=== PATIENT | male | born 1995 | race Caucasian/White ===

== ENCOUNTER 2018-10-29 14:51 | Observation (INO) ==
[2018-10-29] MEDS ORDERED: ceFAZolin Inj 2gm (Premix) 2 GM/50 ML BAG IV ONE (14:55)
[2018-10-29] MEDS ORDERED: DIPH,PERTUSS,TET(ADACEL) VAC/PF 0.5 ML (Tdap) IM ONE (14:55)
[2018-10-29] MEDS ORDERED: Sodium Chloride 0.9% 1,000 ML PRIMARY IV ONE (14:55)
[2018-10-29] MEDS ORDERED: Lidocaine 1% 10 MG/ML - 20 ML VIAL SUBCUT ONE (14:56)
--- NOTE | 2018-10-29 15:01 | PDOC ---
Hand / Wrist Injury HPI - General Chief Complaint: Laceration / Wound Stated Complaint: LEFT INDEX FINGER LACERATION Date Seen by Provider: 10/29/18 Time Seen by Provider: 14:55 Source: POSITIVE: Patient Exam Limitations: POSITIVE: No limitations Nurse's Notes Reviewed & Considered: Yes - History of Present Illness Initial Comments: The patient is a 23-year-old male who presents to the emergency department with an injury to his left index finger. He states that he was cleaning a machine at work. He thought the machine was off however there was still some moving parts within the machine and he got his left index finger caught in one of the gears. He has injury to the index finger only. He is unsure when he last had a tetanus shot. He denies any other significant medical history. Have you received a tetanus shot in the past 10 years?: Unknown - Patient Home Medications Home Medications: Home Medications NK 10/29/18 - Patient Allergies Allergies/Adverse Reactions: Allergies Allergy/AdvReac Type Severity Reaction Status Date / Time No Known Allergies Allergy Verified 10/29/18 15:14 Past Medical History Past Medical History Reviewed: Reviewed - No Changes (No significant past medical history, does not report any medication allergies.) ROS - Limitations ROS Limitations: No Limitations (Review of systems otherwise noncontributory) Hand / Wrist Injury Exam - General Appearance General Appearance: POSITIVE: Alert, Cooperative, No Acute Distress, Anxious - Extremities Upper Extremity: POSITIVE: Other (examination of the left index finger does reveal a circumferential laceration to the index finger located between the interphalangeal joints, he does have good cap refill and sensation to the tip of the finger, he is able to flex and extend the finger, it is difficult to test if he has flexion and extension against resistance secondary to pain) Neurovascular / Tendon: POSITIVE: Sensation Normal, Motor Normal, No Vascular Compromise Hand / Wrist Injury Progress - Results Reviewed by me Xrays/CTs/US Reviewed by me: Yes Discussed with Radiologist: Yes Radiology Findings: X-ray of the left index finger does show a fracture of the distal middle phalanx which does extend into the joint with some displacement - Patient's Progress MDM / ED Course: An IV was established and the patient did receive 2 g of Ancef IV. His tetanus was updated with Tdap. An x-ray was obtained which does show a fracture of the distal middle phalanx with some extension into the joint and some displacement. Because of this orthopedic consultation was obtained from Dr. Livingston. Dr. Livingston evaluated the patient in the emergency room and has made preparations to take him to the operating room for treatment. - Consult Counseled: POSITIVE: Patient, RE: Radiology Results, RE: DX Patient Care Time - Estimated PCT Patient Care Time (In Minutes): 25 Vital Signs - Recent Vital Signs Vital Signs: Vital Signs (Last 8 hours) Temp Pulse Resp BP Pulse Ox 10/29/18 16:47 97.2 F 84 18 118/74 95 10/29/18 14:51 97.2 F 118 H 24 128/83 95 - VS Reviewed Vital Signs Reviewed: Yes Discharge Clinical Impression: Open fracture of phalanx of left index finger Discharge Disposition: Transferred to OR Condition: Stable Patient Problem(s) Reviewed: Yes Follow Up With: NONE,NONE [Primary Care Provider] -
[2018-10-29] MEDS: ceFAZolin Inj 1 GM in Sodium Chloride 0.9% 100 ML IV SCH ×2 (15:25→16:26)
--- NOTE | 2018-10-29 16:01 | DI ---
XR FINGERS MIN 2VW,10/29/2018 2:56 PM: Clinical History: Left second digit injury. Previous Exam: None at this facility. Findings: 3 views of the left second digit are obtained, and demonstrate a displaced fracture involving the dis walter portion of the left second middle phalanx. Surrounding soft tissue irregularity is noted. Impression: Displaced fracture of the distal portion of the left middle phalanx with overlying soft tissue deform ity.
--- NOTE | 2018-10-29 16:38 | CONSULT ---
Consult Note - Consult Consult Date: 10/29/18 Reason for Consult: PreOp Consulation : Ortho Requesting Physician: Dr. 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 Immediate pain and discomfort deformity came to the ER found to have laceration volarly displacement dorsally and circumferential laceration. Patient notes that he has sensation along the volar aspect of the finger no previous problems with the finger. Past Medical History Surgical History: Patient with tonsils and adenoids removed previously patient also with wisdom teeth removal. Patient also with PE tubes Tobacco Use: Current Every Day Smoker Do you dip or chew tobacco: No In the Past 12 Months, Have Used or Abuse Any of the Following Substance: None Alcohol Use: Rarely Medication / Allergies Home Medications: Home Medications Medication Instructions Recorded Confirmed NK 10/29/18 10/29/18 Allergies/Adverse Reactions: Allergies Allergy/AdvReac Type Severity Reaction Status Date / Time No Known Allergies Allergy Verified 10/29/18 15:14 Exam - - Exam: Vital Signs (Last 8 hours) Temp Pulse Resp BP Pulse Ox 10/29/18 14:51 97.2 F 118 H 24 128/83 95 Patient is a well-developed well-nourished male in no apparent distress. Patient is alert and oriented 3 coronary with appropriate affect. Right upper extremity lower extremity free active range of motion with no problems. H EENT exam is benign patient does have a large dilated earlobes with earrings in place. Patient also with nasal ring. Examination of the left upper extremity show full normal range of motion of the wrist and all digits patient has what appears to be normal function of the flexor digitorum superficialis as well as flexion at the DIP joint. Patient unable to extend more than a neutral position at the DIP position but with gentle pressure can hold the finger in that position. Patient claims to have normal sensory exam on the volar aspect of the finger he has a circumferential laceration of looks like the most superficial part or dorsal aspect of the finger is superficial the volar aspect appears to be open though I see no tendon or other open defects. The open wound extends the length of the crease volarly at the DIP joint region. The wound is relatively clean there is no dirt or other foreign bodies of significance. Patient with brisk refill. Good pulses at the wrist. He can actively flex at the DIP and it seems like his FDS function is also intact. Radiographs of the left dominant hand show that he has a middle phalanx fracture at the condyle with dorsiflexion of the distal fragment and also fracture of the condyle making this intra-articular. - Vitals Vital Signs: Vital Signs Temperature 97.2 F Temperature Source Temporal Artery Scan Pulse Rate [Pulse Oximeter 118 Right] Respiratory Rate 24 Blood Pressure [Right Arm] 128/83 Pulse Ox 95 Oxygen Delivery Method Room Air Height 5 ft 9 in Weight 99.79 kg - General General Appearance: No Acute Distress Assessment and Plan - Assessment / Plan Additional Assessment/Plan Details: Impression: Open fracture of left dominant index finger at distal aspect of middle phalanx intra-articular Plan: We will plan on bringing the patient to the OR for washout and pinning of the middle phalanx. Based on the flexion of the DIP joint I believe the flexor digitorum profundus is okay but will be able to get small look about 1 week. In the finger hopefully and wash this out. I believe the extensor tendon is intact based on physical exam but cannot be absolutely sure as I discussed with the patient. The other potential issue is always injury to the flexor digitorum superficialis which I think would be unlikely but is always a possibility that may need to be addressed at some other point in time. I did discuss extensively issues with healing scarring limited motion chronic pain and the option of potential referral to a hand surgeon/specialist. They are happy with continued care here and did not wish to seek a subspecialist for this injury. We'll proceed along these lines keeping nothing by mouth washout and pinning. We will keep him overnight for IV antibiotics. We discussed the patient's current condition and clinical findings as it pertains to the current situation. Surgical versus nonsurgical options risks and benefits were discussed and reviewed. Options moving forward include but are not limited to continued choice to live with their current condition; evaluate their current condition further with imaging studies and/or diagnostic testing, etc.; treat problem/problems with surgical versus nonsurgical methods. The patient demonstrates a clear understanding of our discussion. All questions were answered. Surgical versus nonsurgical options risks and benefits were Discussed and reviewed. Risks include but are not limited to bleeding, infection, neurovascular damage, wound problems, deep vein thromboses, pulmonary embolism, need for further surgery, and loss of life and limb. Certainly any surgical procedure may not improve symptoms and potentially could makes symptoms worse. There are no guarantees implied with the discussion of surgical treatment. All questions were answered and the patient wishes to proceed with surgical treatment.
[2018-10-29] MEDS ORDERED: LIDOCAINE 2%/ EPI 1:200,000 - 20 ML VIAL ONE (17:01)
[2018-10-29] MEDS ORDERED: MIDAZOLAM 5 MG/1 ML ONE ×2 (17:01→18:03)
[2018-10-29] MEDS ORDERED: LIDOCAINE W/ SODIUM BICARB 0.5 ML SYR ONE (17:02)
[2018-10-29] MEDS ORDERED: fentaNYL Inj 250 MCG/5 ML VIAL ONE (17:02)
[2018-10-29] MEDS ORDERED: Mepivacaine Inj 1.5% 450 MG/30 ML VIAL ONE (17:02)
[2018-10-29] MEDS ORDERED: Lactated Ringers 1,000 ML PRIMARY IV ONE (17:14)
[2018-10-29] MEDS ORDERED: Sodium Chloride 0.9% vial 20 ML ONE (17:36)
[2018-10-29] MEDS ORDERED: BACITRACIN 50,000 UNIT VIAL IRRIG ONE (17:37)
[2018-10-29] MEDS ORDERED: KETOROLAC 30 MG/1 ML VIAL ONE (18:13)
[2018-10-29] MEDS ORDERED: Povidone-Iodine Ointment 28.35 gm ointment TOPICAL ONE (18:42)
--- NOTE | 2018-10-29 19:07 | CRNA.PROCE ---
Nerve Block Documentation - - Safety Measures: Time Out Taken, Site Verified - - Type of Nerve Block Used: Left Axillary Block Position for Nerve Block: Supine Moniters Used During Block: EKG Oxygen Supplemented: Yes Sedation Used - Enter Amount in Comment Field [ANES.SEDAT]: Midazolam (mg): Yes (2), Fentanyl (mcg): Yes (100) Skin Prep Used: ChloroPrep Draped: No Local Anesthetic - Enter Amt in Comment Field [ANES.LOCNB]: 1 % Xylocaine with Epinephrine 1:100,000 (mL): Yes, 2 % Xylocaine with Epinephrine 1:200,000 (mL): Yes (20cc), 1.5 % Mepivacaine (mL): Yes (20cc) - - PreOp Block : Time In: 17:20 PreOp Block : Time Out: 17:33 - - Additional Details: A periarterial approach was used, uneventfully. MICHAEL Valadez Anesthesia Time - Other Weight: 99.79 kg Height: 5 ft 9 in Body Mass Index (BMI): 32.5
--- NOTE | 2018-10-29 19:07 | CRNA.PROGR ---
Anesthesia Time - Procedure/Recovery Time Start Date: 10/29/18 Anesthesia : Time In: 17:55 Anesthesia : Time Out: 19:01 - Block Time PreOp Block : Time In: 17:20 PreOp Block : Time Out: 17:33 - Other Weight: 99.79 kg Height: 5 ft 9 in Body Mass Index (BMI): 32.5 Physical Status: P2 Anesthesia Type: MAC
[2018-10-29] MEDS ORDERED: BISACODYL 10 MG SUPPOSITORY RECTAL PRN (19:42)
[2018-10-29] MEDS ORDERED: IBUPROFEN 400 MG TABLET PO PRN (19:42)
[2018-10-29] MEDS ORDERED: HYDROmorphone 2 MG/1 ML IVP PRN (19:42)
[2018-10-29] MEDS ORDERED: MAG HYDROX/AL HYDROX/SIMETH 30 ML SUSP PO PRN (19:42)
[2018-10-29] MEDS ORDERED: ONDANSETRON 4 MG/2 ML VIAL IVP PRN (19:42)
[2018-10-29] MEDS ORDERED: BISACODYL 5 MG TABLET PO PRN (19:42)
[2018-10-29] MEDS ORDERED: ACETAMINOPHEN 325 MG TABLET PO PRN (19:42)
[2018-10-29] MEDS ORDERED: Prochlorperazine Tab 10 MG TAB PO PRN (19:42)
[2018-10-29] MEDS ORDERED: KETOROLAC 15 MG/1 ML VIAL IVP PRN (19:42)
[2018-10-29] MEDS ORDERED: CALCIUM CARBONATE 500 MG (TUMS) CHEWABLE TABLET PO PRN (19:42)
[2018-10-29] MEDS ORDERED: Ondansetron ODT Tab 8 MG TAB PO PRN (19:42)
[2018-10-29] MEDS ORDERED: diphenhydrAMINE 25 MG CAPSULE PO PRN (19:42)
[2018-10-29] MEDS: Lactated Ringers 1,000 ML PRIMARY IV SCH (20:54)
[2018-10-29] MEDS: HYDROcodone-APAP 7.5 MG-325 MG TABLET PO PRN (21:01)
[2018-10-30] MEDS: ceFAZolin Inj 2gm (Premix) 2 GM/50 ML BAG IV SCH ×2 (01:24→08:13)
[2018-10-30 04:15] VITALS: TEMP 97.7
[2018-10-30] MEDS: Lactated Ringers 1,000 ML PRIMARY IV SCH (05:06)
[2018-10-30 08:11] VITALS: BP 109/56; RESP 16; O2SAT 98
[2018-10-30] MEDS: HYDROcodone-APAP 7.5 MG-325 MG TABLET PO PRN (08:12)
--- NOTE | 2018-10-30 10:26 | ORTHO.DC ---
Discharge Summary Admit Date: 10/29/18 Discharge Date: 10/30/18 Admitting Diagnosis: left index finger open fracture middle phalanx Discharge Diagnosis: Same Primary Surgery and Date: October2018 irrigation and debridement, washout and pinning of middle phalanx fracture Hospital Course: Patient was admitted for IV antibiotics after the washout. Patient received 3 doses of symptoms: For grade 1 open fracture. Patient at time of discharge stable and pain control with oral medications and had received 24 hours of IV antibiotics. Dressing in place no active issues. Physical exam benign Discharge Medications: Discharge Medications HYDROcodone/APAP 7.5/325 Tab [[place] 7.5/325 Tab] 1 - 2 tab PO Q4H PRN #40 tab 10/30/18 [Rx] Ibuprofen [Motrin] 600 mg PO Q6H PRN #90 tab 10/30/18 [Rx] Follow-Up: Bonifacio Livingston [STAFF PHYSICIAN] - 11/01/18 8:45 am Discharge Instructions Provided to Patient / Family: Finger Fracture (DC), Debridement (DC) Exam - - Exam: Upper extremity in sling and dressing. Digit with reasonable sensory exam with a light touch. No active issues. Vital Signs (24 hrs) 10/29/18 14:51 10/29/18 16:47 10/29/18 17:05 Temperature 97.2 F 97.2 F Pulse Rate 92 Pulse Rate [Pulse Oximeter Right] 118 H 92 Respiratory Rate 24 18 21 Blood Pressure 142/75 Blood Pressure [Right Arm] 128/83 145/87 Blood Pressure [Right Calf] Pulse Ox 95 95 96 10/29/18 19:00 10/29/18 19:17 10/29/18 19:35 Temperature 36.6 F L 36.7 F L 98.9 F Pulse Rate 103 H 102 H Pulse Rate [Pulse Oximeter Right] 95 Respiratory Rate 15 16 20 Blood Pressure 139/81 143/90 Blood Pressure [Right Arm] Blood Pressure [Right Calf] 142/90 Pulse Ox 96 96 92 10/29/18 19:50 10/29/18 20:20 10/29/18 20:57 Temperature 98.0 F Pulse Rate Pulse Rate [Pulse Oximeter Right] 114 H 107 H 106 H Respiratory Rate 20 20 20 Blood Pressure Blood Pressure [Right Arm] Blood Pressure [Right Calf] 141/80 145/93 133/75 Pulse Ox 95 96 97 10/29/18 22:07 10/29/18 23:54 10/30/18 04:14 Temperature 98.4 F 97.7 F Pulse Rate Pulse Rate [Pulse Oximeter Right] 88 78 Respiratory Rate 18 19 20 Blood Pressure Blood Pressure [Right Arm] 126/87 103/63 Blood Pressure [Right Calf] Pulse Ox 97 95 10/30/18 08:07 Temperature 97.7 F Pulse Rate Pulse Rate [Pulse Oximeter Right] 73 Respiratory Rate 16 Blood Pressure Blood Pressure [Right Arm] Blood Pressure [Right Calf] 109/56 Pulse Ox 98 - Vitals Vital Signs: Vital Signs Temperature 97.7 F Temperature Source Oral Pulse Rate [Pulse Oximeter 73 Right] Pulse Rate 102 Respiratory Rate 16 Blood Pressure [Right Calf] 109/56 Blood Pressure [Right Arm] 103/63 Blood Pressure 143/90 Pulse Ox 98 Oxygen Flow Rate ra Oxygen Delivery Method Room Air Height 5 ft 9 in Weight 95.799 kg
== END 2018-10-30 10:34 | disposition home or self-care (01) ==
LOC: ER 14:51 → MED/SURG 17:06 → OR 17:06
PROVIDERS: ADMIT Orthopaedic Surgery; ATTEND Orthopaedic Surgery